=== PATIENT | female | born 1980 | race African-American/Black ===

== ENCOUNTER 2016-12-14 14:30 | Outpatient (CLI) | payer BC | END 2016-12-14 14:31 | LOC: MADLABBHPM 14:30 | PROVIDERS: ATTEND Family Medicine | DX: Z01.419 Encounter for gynecological examination (general) (routine) without abnormal findings (principal) | CPT/HCPCS: 36415 ==

== ENCOUNTER 2021-03-31 00:03 | Emergency (ER) | payer BC, OTHER ==
[2021-03-31] MEDS ORDERED: HYDROcodone/Acetaminophen 5/325 mg Tablet ONE (00:40)
[2021-03-31] MEDS ORDERED: Acyclovir 200 mg Capsule ONE ×2 (00:41→00:44)
[2021-03-31] MEDS ORDERED: Gabapentin 100 MG CAP ONE (00:41)
[2021-03-31] MEDS ORDERED: Dexamethasone 4 MG TAB ONE (00:41)
[2021-03-31] MEDS ORDERED: Cephalexin 500 MG CAP ONE (00:41)
== END 2021-03-31 01:14 | disposition home or self-care (01) ==
LOC: MADERS 00:03
DX: L03.312 Cellulitis of back [any part except buttock and flank] (principal); L03.313 Cellulitis of chest wall; B02.9 Zoster without complications; M19.90 Unspecified osteoarthritis, unspecified site; Z79.899 Other long term (current) drug therapy
CPT/HCPCS: 99282; J8540

== ENCOUNTER 2021-08-12 15:53 | Emergency (ER) | payer BC, OTHER | END 2021-08-12 19:09 | disposition left against medical advice (07) | LOC: MADERS 15:53 | DX: Z53.21 Procedure and treatment not carried out due to patient leaving prior to being seen by health care provider (principal) ==

== ENCOUNTER 2022-02-16 21:20 | Emergency (ER) | payer BC, OTHER ==
[2022-02-16] MEDS ORDERED: Tetracaine 0.5% PF 4 ML BOT ONE (21:56)
[2022-02-16] MEDS ORDERED: Fluorescein Opthalmic Strip ONE ×2 (21:57)
[2022-02-16] MEDS ORDERED: Ketorolac Tromethamine 30 MG/ML VIAL ONE (22:31)
[2022-02-16] MEDS ORDERED: Sodium Chloride 0.9% 1,000 ML ONE (22:31)
[2022-02-16] MEDS ORDERED: Prochlorperazine 10 MG/2 ML VIAL ONE (22:32)
[2022-02-16] MEDS ORDERED: diphenhydrAMINE 12.5 MG/5 ML UDCUP ONE (22:32)
[2022-02-16] MEDS ORDERED: diphenhydrAMINE 50 MG/ML VIAL ONE (22:34)
== END 2022-02-17 00:16 | disposition home or self-care (01) ==
LOC: MADERS 21:20 → EEVIPCON 21:20 → MADERS 02-17 00:16
DX: R51.9 Headache, unspecified (principal); F17.210 Nicotine dependence, cigarettes, uncomplicated
CPT/HCPCS: 36416; 96374; 96375; J0780; J1200; J1885; J7050; Q0163

== ENCOUNTER 2022-10-19 12:21 | Emergency (ER) | payer OTHER ==
[2022-10-19] MEDS ORDERED: Naproxen 500 MG TAB ONE ×2 (13:34→13:35)
== END 2022-10-19 13:44 | disposition home or self-care (01) ==
LOC: MADERS 12:21
DX: S83.91XA Sprain of unspecified site of right knee, initial encounter (principal); X58.XXXA Exposure to other specified factors, initial encounter

== ENCOUNTER 2023-04-11 12:37 | Emergency (ER) | payer OTHER ==
[2023-04-11 14:10] LABS: #Lymphocytes 0.8 thou/uL (1.20-3.40); #Monocytes 0.1 thou/uL (0.11-0.59); #Neutrophils 10.8 thou/uL (1.40-6.50); %Basophils 0.4 % (0.0-1.0); %Eosinophils 0.1 % (0.0-10.0); %Lymphocytes 6.6 % (21.0-51.0); Hematocrit 43.5 % (36.0-47.0); Hemoglobin 14.3 g/dL (12.0-16.0); Mean Corpuscular HGB CONC 32.9 g/dL (32.0-36.0); Mean Corpuscular Volume 97.2 fl (78.0-98.0); Mean Platelet Volume 14.5 fL (7.4-10.4); Platelet Count 159 10x3/uL (130-400); RBC Distribution Width 13.7 % (11.5-14.5); Red Blood Cell (RBC) Count 4.48 mill/uL (4.20-5.40); White Blood Cell (WBC) Count 11.8 10x3/uL (4.8-10.8)
[2023-04-11 14:22] LABS: ALT (SGPT) 20 U/L (8-55); AST (SGOT) 12 U/L (5-34); Albumin 4.3 g/dL (3.5-5.0); Alkaline Phosphatase 32 U/L (40-110); Anion Gap 17 mmol/L (10-20); BUN (Urea Nitrogen) 8 mg/dL (7.0-18.7); Bilirubin, Total 0.4 mg/dL (0.2-1.2); Calc. Creatinine Clearance 0 mL/min (70-130); Calcium 9.5 mg/dL (7.8-10.44); Carbon Dioxide 23 mmol/L (22-29); Chloride 107 mmol/L (98-107); Estimated GFR 77; Globulin 3.1 g/dL (2.4-3.5); Glucose 116 mg/dL (70-105); Protein, Total 7.4 g/dL (6.0-8.3); Sodium 143 mmol/L (136-145)
== END 2023-04-11 14:57 | disposition home or self-care (01) ==
LOC: MADERS 12:37
DX: J01.90 Acute sinusitis, unspecified (principal); R03.0 Elevated blood-pressure reading, without diagnosis of hypertension; F17.210 Nicotine dependence, cigarettes, uncomplicated
CPT/HCPCS: 36415; 80053; 83735; 85025; 93005

== ENCOUNTER 2024-01-31 19:05 | Emergency (ER) | payer SELFPAY ==
[2024-01-31] MEDS ORDERED: Ibuprofen 800 MG TAB ONE (20:32)
[2024-01-31] MEDS ORDERED: Bacitracin 1 PK ONE (20:58)
[2024-01-31] MEDS ORDERED: CEFAZOLIN 1 GM VIAL ONE (21:08)
== END 2024-01-31 21:20 | disposition home or self-care (01) ==
LOC: MADERS 19:05
DX: T81.30XA Disruption of wound, unspecified, initial encounter (principal); Z87.891 Personal history of nicotine dependence
CPT/HCPCS: 87070; 87077; 87205; 96372; 99282; J0690

== ENCOUNTER 2024-08-27 07:22 | Emergency (ER) | payer SELFPAY ==
[2024-08-27] MEDS ORDERED: Acetaminophen 500 MG TAB ONE (08:16)
[2024-08-27] MEDS ORDERED: Ondansetron PF 4 MG/2 ML Vial ONE (08:17)
[2024-08-27] MEDS ORDERED: Sodium Chloride 0.9% 1,000 ML ONE ×2 (08:17→10:03)
[2024-08-27 08:40] LABS: BHCG - Serum Negative (NEGATIVE); Pregs Control Background? CLEAR/WHITE (CLR/WHITE); Pregs Control Bar Appear? YES (CONTROL BAR)
[2024-08-27 08:44] LABS: Hematocrit 43.5 % (36.0-47.0); Mean Corpuscular HGB CONC 32.3 g/dL (32.0-36.0); Mean Corpuscular Hemoglobin 30.7 pg (27.0-31.0); Mean Corpuscular Volume 95.1 fl (78.0-98.0); Mean Platelet Volume 14.3 fL (7.4-10.4); Platelet Count 121 10x3/uL (130-400); RBC Distribution Width 13.5 % (11.5-14.5); Red Blood Cell (RBC) Count 4.57 mill/uL (4.20-5.40); White Blood Cell (WBC) Count 13.9 10x3/uL (4.8-10.8)
[2024-08-27 08:45] LABS: MDiff Complete? YES; Manual Diff?? YES
[2024-08-27 08:50] LABS: ALT (SGPT) 22 U/L (8-55); AST (SGOT) 15 U/L (5-34); Albumin 3.9 g/dL (3.5-5.0); Alkaline Phosphatase 33 U/L (40-110); Anion Gap 18 mmol/L (10-20); BUN (Urea Nitrogen) 6 mg/dL (7.0-18.7); Bilirubin, Total 1.4 mg/dL (0.2-1.2); Calc. Creatinine Clearance 0 mL/min (70-130); Calcium 9.1 mg/dL (7.8-10.44); Carbon Dioxide 18 mmol/L (22-29); Chloride 101 mmol/L (98-107); Estimated GFR 70; Globulin 3.6 g/dL (2.4-3.5); Glucose 84 mg/dL (70-105); Lipase 31 U/L (8-78); Magnesium 1.7 mg/dL (1.6-2.6); Potassium 3.6 mmol/L (3.5-5.1); Protein, Total 7.5 g/dL (6.0-8.3); Sodium 133 mmol/L (136-145)
[2024-08-27 08:51] LABS: Band 1 % (5-11); Giant Platelets SLIGHT HPF (0-5); Large Platelets SLIGHT (None Seen); Lymphocytes 2 % (21-51); Monocytes 3 % (0-10); Neutrophil 90 % (42-75); Platelet Adequacy Comment Appears Decreased; RBC Morph Comment Within Normal Limits; Reactive Lymphocytes 4 % (0-10)
[2024-08-27] MEDS ORDERED: Promethazine HCl 25 MG/ML VIAL ONE (09:07)
[2024-08-27] MEDS ORDERED: Ketorolac Tromethamine 30 MG (1 mL) VIAL ONE (09:07)
[2024-08-27 10:32] LABS: Bilirubin Negative (Negative); Blood, Urine Trace (Negative); Clarity Clear (Clear); Glucose, Urine (Dipstick) Negative (Negative); Ketone, Urine 40 mg/dL (Negative); Leukocyte Negative (Negative); Nitrite Negative (Negative); Protein, Urine (Dipstick) Negative (Neg-Trace)
[2024-08-27 10:40] LABS: Bacteria/HPF Rare-Few HPF (None Seen); CAUTI Indications for Culture Dysuria,urgency,freq; WBC/HPF 0-3 HPF (0-3)
[2024-08-27 10:41] LABS: Urine Culture Reflex No No
== END 2024-08-27 11:25 | disposition home or self-care (01) ==
LOC: MADERS 07:22
DX: B34.9 Viral infection, unspecified (principal); F17.210 Nicotine dependence, cigarettes, uncomplicated
CPT/HCPCS: 71046; 80053; 81001; 83605; 83690; 83735; 84703; 85025; 87081; 87428; 87430; 96361; 96365; 96375; J1885; J2405; J2550; J7030

== ENCOUNTER 2024-08-27 21:04 | Emergency (ER) | payer SELFPAY ==
[~2024-08-27 21:04] MED LIST: Iopamidol 370 76% 100 ML VIAL ONE
[2024-08-27] MEDS ORDERED: Promethazine HCl 25 MG/ML VIAL ONE (21:39)
[2024-08-27] MEDS ORDERED: Sodium Chloride 0.9% 1,000 ML ONE (21:39)
[2024-08-27] MEDS ORDERED: Ondansetron PF 4 MG/2 ML Vial ONE ×2 (22:36→23:17)
[2024-08-27] MEDS ORDERED: Ketorolac Tromethamine 30 MG (1 mL) VIAL ONE (22:36)
[2024-08-27] MEDS ORDERED: Metoclopramide HCl 10 MG (2 mL) VIAL ONE (23:34)
[2024-08-27] MEDS ORDERED: diphenhydrAMINE 50 MG/ML VIAL ONE (23:34)
[2024-08-28] MEDS ORDERED: diphenhydrAMINE 50 MG/ML VIAL ONE (00:53)
[2024-08-28] MEDS ORDERED: Haloperidol Lactate 5 MG/ML VIAL ONE (00:53)
[2024-08-28] MEDS ORDERED: Lactated Ringer's 1,000 ML ONE (00:53)
[2024-08-28 02:37] LABS: Hematocrit 38.5 % (36.0-47.0); Hemoglobin 12.4 g/dL (12.0-16.0); Mean Corpuscular HGB CONC 32.3 g/dL (32.0-36.0); Mean Corpuscular Hemoglobin 30.6 pg (27.0-31.0); Mean Platelet Volume 11.9 fL (7.4-10.4); Platelet Count 110 10x3/uL (130-400); RBC Distribution Width 13.3 % (11.5-14.5); Red Blood Cell (RBC) Count 4.05 mill/uL (4.20-5.40); White Blood Cell (WBC) Count 13.4 10x3/uL (4.8-10.8)
[2024-08-28 03:00] LABS: Band 6 % (5-11); Lymphocytes 4 % (21-51); MDiff Complete? YES; Monocytes 4 % (0-10); Neutrophil 86 % (42-75); Platelet Adequacy Comment Appears Decreased
[2024-08-28 03:16] LABS: ALT (SGPT) 21 U/L (8-55); AST (SGOT) 16 U/L (5-34); Albumin 3.4 g/dL (3.5-5.0); Alkaline Phosphatase 32 U/L (40-110); Anion Gap 13 mmol/L (10-20); BUN (Urea Nitrogen) 5 mg/dL (7.0-18.7); Calc. Creatinine Clearance 0 mL/min (70-130); Calcium 7.7 mg/dL (7.8-10.44); Carbon Dioxide 19 mmol/L (22-29); Chloride 109 mmol/L (98-107); Estimated GFR 93; Globulin 2.5 g/dL (2.4-3.5); Glucose 90 mg/dL (70-105); Magnesium 1.7 mg/dL (1.6-2.6); Potassium 3.7 mmol/L (3.5-5.1); Protein, Total 5.9 g/dL (6.0-8.3); Sodium 137 mmol/L (136-145)
[2024-08-28 06:35] LABS: Amphetamine Not Detected (NotDetected); Barbiturates Screen Not Detected (NotDetected); Benzodiazepine Screen Not Detected (NotDetected); Cocaine Metabolite Screen Not Detected (NotDetected); Methadone Not Detected (NotDetected); Methamphetamine Not Detected (NotDetected); Opiate Screen Not Detected (NotDetected); Oxycodone Screen Not Detected (NotDetected); Phencyclidine (PCP) Not Detected (NotDetected); THC/Cannabinoid Screen Detected (NotDetected); Tricyclic Screen Not Detected (NotDetected)
== END 2024-08-28 07:00 | disposition short-term general hospital (02) ==
LOC: MADERS 21:04
DX: B34.9 Viral infection, unspecified (principal); R11.2 Nausea with vomiting, unspecified; F17.210 Nicotine dependence, cigarettes, uncomplicated
CPT/HCPCS: 74177; 80053; 80306; 83605; 83735; 85025; 96361; 96374; 96375; 96376; J1200; J1630; J1885; J2405; J2550; J2765; J7030; J7120; Q9967